=== PATIENT | female | born 1935 | race Caucasian/White ===

== ENCOUNTER → 2016-11-21 | Outpatient (CLI) | payer MEDICARE | END | disposition home or self-care (01) | LOC: PCVCCLINIC 13:08 | PROVIDERS: ATTEND Internal Medicine Cardiovascular Disease | DX: I67.9 Cerebrovascular disease, unspecified (principal); I10 Essential (primary) hypertension; I07.1 Rheumatic tricuspid insufficiency; I65.22 Occlusion and stenosis of left carotid artery; E78.00 Pure hypercholesterolemia, unspecified; D32.9 Benign neoplasm of meninges, unspecified; Z87.891 Personal history of nicotine dependence; Z79.899 Other long term (current) drug therapy | CPT/HCPCS: 80061; 93005; G0463 ==

== ENCOUNTER → 2018-04-07 | Outpatient (CLI) | payer MEDICARE | END | disposition home or self-care (01) | LOC: PCVCCLINIC 16:11 | PROVIDERS: ATTEND Internal Medicine Cardiovascular Disease | DX: I10 Essential (primary) hypertension (principal); E78.00 Pure hypercholesterolemia, unspecified; I38 Endocarditis, valve unspecified; E11.9 Type 2 diabetes mellitus without complications; I67.9 Cerebrovascular disease, unspecified; Z79.899 Other long term (current) drug therapy | CPT/HCPCS: 80061; 93005; G0463 ==

== ENCOUNTER → 2018-10-13 | Outpatient (CLI) | payer MEDICARE ==
--- NOTE | 2018-10-13 16:38 | PCVCIMAG ---
APPROVED REPORT Study performed: 10/13/2018 14:38:22 EXAM: Comprehensive 2D, Doppler, and color-flow Echocardiogram Patient Location: Echo lab Status: routine BSA: 1.78 HR: 71 bpmBP: 154/80 mmHg Rhythm: NSR Other Information Study Quality: Adequate Risk Factors: Cardiac Risk Factors: Hyperlipidemia, HTN, DM 2D Dimensions IVSd: 9.43 (7-11mm)LVOT Diam: 18.00 (18-24mm) LVDd: 41.11 mm PWd: 9.43 (7-11mm)Ascending Ao: 31.41 (22-36mm) LVDs: 27.57 (25-40mm) Left Atrium: 31.52 (27-40mm) Aortic Root: 29.95 mm LV Single Plane 4CH: 67.41 % LV Single Plane 2CH: 62.07 % Biplane EF: 67.4 % Volumes Left Atrial Volume (Systole) Single Plane 4CH: 40.09 mLSingle Plane 2CH: 26.55 mL LA ESV Index: 24.00 mL/m2 Aortic Valve AoV Peak Brody.: 1.32 m/s AO Peak Gr.: 6.93 mmHgLVOT Max P.10 mmHg LVOT Max V: 1.00 m/s WILBERT Vmax: 1.92 cm2 AI Vmax: 4.14 m/s AI Loving: 1.73 m/s2 AI PHT: 700.88 ms Mitral Valve E/A Ratio: 0.6 MV Decel. Time: 282.66 ms MV E Max Brody.: 0.53 m/s MV A Brody.: 0.88 m/s IVRT: 62.28 ms Pulmonary Valve PV Peak Brody.: 0.84 m/sPV Peak Gr.: 2.84 mmHg Pulmonary Vein P Vein S: 0.50 m/sP Vein A: 0.33 m/s P Vein D: 0.44 m/sP Vein A Dur.: 90.0 msec P Vein S/D Ratio: 1.14 Tricuspid Valve RAP Estimate: 7.00 mmHg Left Ventricle The left ventricle is normal size. There is normal LV segmental wall motion. There is normal left ventricular wall thickness. Left ventricular systolic function is normal. The left ventricular ejection fraction is within the normal range. LVEF is 55-60%. Mild diastolic dysfunction is present (impaired relaxation pattern). Right Ventricle The right ventricle is normal size. The right ventricular systolic function is normal. Atria The left atrium size is normal. The right atrium size is normal. Aortic Valve The aortic valve is normal in structure. Mild aortic regurgitation. There is no aortic valvular stenosis. Mitral Valve The mitral valve is normal in structure. There is no mitral valve regurgitation noted. No evidence of mitral valve stenosis. Tricuspid Valve The tricuspid valve is normal in structure. Trace tricuspid regurgitation. Unable to assess PA pressure. Pulmonic Valve The pulmonary valve is normal in structure. Trace pulmonic regurgitation. Great Vessels The aortic root is normal in size. IVC is normal in size and collapses >50% with inspiration. Pericardium There is no pericardial effusion. <Conclusion> The left ventricle is normal size. LVEF is 55-60%. Mild diastolic dysfunction is present (impaired relaxation pattern). The left atrium size is normal. Mild aortic regurgitation. There is no mitral valve regurgitation noted. Trace tricuspid regurgitation. Unable to assess PA pressure. The aortic root is normal in size. There is no pericardial effusion.
== END | disposition home or self-care (01) ==
LOC: PCVCIMAG 14:30
PROVIDERS: ATTEND Internal Medicine Cardiovascular Disease
DX: I35.1 Nonrheumatic aortic (valve) insufficiency (principal); I10 Essential (primary) hypertension; E78.00 Pure hypercholesterolemia, unspecified; I36.1 Nonrheumatic tricuspid (valve) insufficiency; I67.9 Cerebrovascular disease, unspecified; I65.29 Occlusion and stenosis of unspecified carotid artery; Z87.891 Personal history of nicotine dependence
CPT/HCPCS: 36415; 80061; 93005; 93306; G0463